=== PATIENT | female | born 1980 | race African-American/Black ===

== ENCOUNTER 2019-05-06 15:20 | Emergency (ER) | payer BC ==
--- NOTE | 2019-05-06 16:36 | RAD REPORT ---
EXAM DESCRIPTION: RAD - Chest Single View - 05/06/2019 4:18 pm CLINICAL HISTORY: COUGH Chest pain. COMPARISON: No comparisons FINDINGS: Portable technique limits examination quality. The lungs are grossly clear. The heart is normal in size. No displaced fractures. IMPRESSION: No acute intrathoracic process suspected.
--- NOTE | 2019-05-06 17:06 | EDPHYS ---
Physician Documentation [facility] Name: Maya Hendricks Age: 39 yrs Sex: Female : 1980 Arrival Date: 05/06/2019 Time: 15:26 Bed 14 Private MD: ED Physician Zhen Baptiste HPI: 05/05 16:00 This 39 yrs old Black Female presents to ER via Ambulatory with complaints of Sore jmm Throat, Cough. 16:00 The patient presents with sore throat. Onset: The symptoms/episode began/occurred jmm gradually, 1 week(s) ago. Modifying factors: The symptoms are alleviated by nothing, the symptoms are aggravated by nothing. Associated signs and symptoms: Pertinent positives: cough, earache, Pertinent negatives chills, fever. Historical: - Allergies: 15:31 seafood; ll1 - PMHx: 15:31 None; ll1 - PSHx: 15:31 None; ll1 - Immunization history:: Flu vaccine is not up to date. ROS: 16:00 Constitutional: Negative for fever, chills, and weight loss, Eyes: Negative for injury, jmm pain, redness, and discharge, Neck: Negative for injury, pain, and swelling, Cardiovascular: Negative for chest pain, palpitations, and edema, Respiratory: Negative for shortness of breath, cough, wheezing, and pleuritic chest pain. 16:00 Abdomen/GI: Negative for abdominal pain, nausea, vomiting, diarrhea, and constipation. 16:00 ENT: Positive for ear pain, sore throat. 16:00 Respiratory: Positive for cough. 16:00 All other systems are negative. Exam: 16:00 Constitutional: This is a well developed, well nourished patient who is awake, alert, jmm and in no acute distress. Head/Face: atraumatic. Eyes: EOMI, no conjunctival erythema appreciated 16:00 Neck: Trachea midline, Supple Chest/axilla: Normal chest wall appearance and motion. 16:00 Respiratory: Normal respirations, no respiratory distress appreciated Abdomen/GI: Non distended, soft Back: Normal ROM Skin: General appearance color normal 16:00 ENT: TM's: erythema, that is moderate, bilaterally, Posterior pharynx: erythema, that is moderate. 16:00 Cardiovascular: Rate: normal, Rhythm: regular. 16:00 Musculoskeletal/extremity: ROM: intact in all extremities. 16:00 Skin: Appearance: Color: normal in color. 16:00 Neuro: Orientation: is normal, Mentation: is normal, Memory: is normal. 16:00 Psych: Behavior/mood is pleasant, cooperative. Vital Signs: 15:29 BP 149 / 74; Pulse 87; Resp 17; Temp 98.7; Pulse Ox 99% ; Weight 82.55 kg; Height 5 ft. ll1 3 in. (160.02 cm); Pain 8/10; 15:29 Body Mass Index 32.24 (82.55 kg, 160.02 cm) ll1 MDM: 15:55 Patient medically screened. [facility] 17:03 Data reviewed: vital signs, nurses notes. Counseling: I had a detailed discussion with [facility] the patient and/or guardian regarding: the historical points, exam findings, and any diagnostic results supporting the discharge/admit diagnosis, lab results, radiology results, the need for outpatient follow up, to return to the emergency department if symptoms worsen or persist or if there are any questions or concerns that arise at home. ED course: Patient is alert and non toxic in appearance. No signs of resp distress. Does not qualify for COVID testing. Patient is advised to self quarantee for 14 days. Patient understood and agrees with the plan of care. . 05/05 16:00 Order name: Flu; Complete Time: 16:51 [facility] 05/05 16:00 Order name: Strep; Complete Time: 16:33 [facility] 05/05 16:00 Order name: Chest Single View XRAY; Complete Time: 16:57 [facility] 05/05 16:28 Order name: Throat Culture EDMS Administered Medications: No medications were administered Disposition: 18:35 Co-signature as Attending Physician, Zhen Baptiste MD Signature for administrative ps1 purposes. Did not see or evaluate patient. . Disposition: 05/06/19 17:05 Discharged to Home. Impression: Acute upper respiratory infection, unspecified, Acute serous otitis media, Acute pharyngitis. - Condition is Stable. - Discharge Instructions: Otitis Media, Adult, Pharyngitis, Upper Respiratory Infection, Adult. - Prescriptions for Augmentin 875- 125 mg Oral Tablet - take 1 tablet by ORAL route every 12 hours for 10 days; 20 tablet. Bromfed DM 2- 30-10 mg/5 mL Oral syrup - take 5 milliliter by ORAL route every 4 hours; 1 bottle. - Work release form, Medication Reconciliation Form, Thank You Letter, Antibiotic Education, Prescription Opioid Use form. - Follow up: Private Physician; When: 2 - 3 days; Reason: Recheck today's complaints, Continuance of care, Re-evaluation by your physician. - Notes: Please self quarantine for 14 days. If you developed shortness of breath please return to the ED for further evaluation. Signatures: Dispatcher [employer] EDMS Juan Whyte PA PA jmm Munoz, Edgar, RN RN em Zhen Baptiste MD MD ps1 Vic Damon RN RN ll1 Corrections: (The following items were deleted from the chart) 17:26 17:05 05/06/2019 17:05 Discharged to Home. Impression: Acute upper respiratory em infection, unspecified; Acute serous otitis media; Acute pharyngitis. Condition is Stable. Forms are Medication Reconciliation Form, Thank You Letter, Antibiotic Education, Prescription Opioid Use. Follow up: Private Physician; When: 2 - 3 days; Reason: Recheck today's complaints, Continuance of care, Re-evaluation by your physician. cande
--- NOTE | 2019-05-06 17:06 | ER ---
Nurse's Notes [facility] Name: Maya Hendricks Age: 39 yrs Sex: Female : 1980 Arrival Date: 05/06/2019 Time: 15:26 Bed 14 Private MD: Diagnosis: Acute upper respiratory infection, unspecified;Acute serous otitis media;Acute pharyngitis Presentation: 05/05 15:29 Chief complaint: Patient states: Sore throat, ear congestion and cough for 5 days. No ll1 known fever. Coronavirus screen: The patient has NOT traveled to a country currently being monitored by the CDC within the last 14 days. Proceed with normal triage procedures. Ebola Screen: Patient denies travel to an Ebola-affected area in the 21 days before illness onset. Initial Sepsis Screen: Does the patient meet any 2 criteria? No. Patient's initial sepsis screen is negative. Risk Assessment: Do you want to hurt yourself or someone else? Patient reports no desire to harm self or others. 15:29 Method Of Arrival: Ambulatory ll1 15:29 Acuity: SAHARA 4 ll1 Historical: - Allergies: 15:31 seafood; ll1 - PMHx: 15:31 None; ll1 - PSHx: 15:31 None; ll1 - Immunization history:: Flu vaccine is not up to date. Screenin:21 Abuse screen: Denies threats or abuse. Nutritional screening: No deficits noted. em Tuberculosis screening: No symptoms or risk factors identified. Fall Risk None identified. Assessment: 16:21 General: Appears in no apparent distress. uncomfortable, Behavior is calm, cooperative, em appropriate for age, Reports feeling ill for > 3 days, Denies fever. Pain: Complains of pain in throat Pain currently is 8 out of 10 on a pain scale. Neuro: Level of Consciousness is awake, alert, obeys commands, Oriented to person, place, time, situation, Appropriate for age. Cardiovascular: Capillary refill < 3 seconds Patient's skin is warm and dry. Respiratory: Reports cough that is Airway is patent Respiratory effort is even, unlabored, Respiratory pattern is regular, symmetrical, Breath sounds are clear bilaterally. Denies shortness of breath. EENT: Nares are clear Oral mucosa is moist. Throat is reddened has enlarged tonsils bilaterally. Derm: Skin is intact, is healthy with good turgor, Skin is pink, warm \T\ dry. Musculoskeletal: Capillary refill < 3 seconds, Range of motion: intact in all extremities. Vital Signs: 15:29 BP 149 / 74; Pulse 87; Resp 17; Temp 98.7; Pulse Ox 99% ; Weight 82.55 kg; Height 5 ft. ll1 3 in. (160.02 cm); Pain 8/10; 15:29 Body Mass Index 32.24 (82.55 kg, 160.02 cm) 1 ED Course: 15:26 Patient arrived in ED. mr 15:30 Triage completed. ll1 15:31 Arm band placed on Patient placed in an exam room. 1 15:49 [facility] 15:49 Zhen Baptiste MD is Attending Physician. [facility] 15:49 Delvin Gandhi, RN is Primary Nurse. em 16:08 Strep Sent. 3 16:08 Flu Sent. 3 16:19 Chest Single View XRAY In Process Unspecified. EDMS 16:21 Patient has correct armband on for positive identification. Bed in low position. Call em light in reach. Adult w/ patient. 17:25 No provider procedures requiring assistance completed. Patient did not have IV access em during this emergency room visit. Administered Medications: No medications were administered Outcome: 17:05 Discharge ordered by . [facility] 17:25 Discharged to home ambulatory, with family. em 17:25 Condition: good 17:25 Discharge instructions given to patient, family, Instructed on discharge instructions, follow up and referral plans. medication usage, Demonstrated understanding of instructions, follow-up care, medications, Prescriptions given X 2. 17:26 Patient left the ED. em Signatures: Dispatcher [employer] EDMS Jaun Whyte PA PA jmm Tee Mally mr Delvin Gandhi, RN RN Brunilda Cheng [employer] Vic Damon RN RN 1
[2019-05-06 17:37] VITALS: BP 149/74; TEMP 98.7; O2SAT 99
== END 2019-05-06 17:26 | disposition home or self-care (01) ==
LOC: ER 15:20
DX: J06.9 Acute upper respiratory infection, unspecified (principal); H65.03 Acute serous otitis media, bilateral; J02.9 Acute pharyngitis, unspecified
CPT/HCPCS: 71045; 87070; 87081; 87804; 99283

== ENCOUNTER 2021-11-13 05:52 | Inpatient (IN) | payer BC ==
[2021-11-05 11:42] LABS: Specific Gravity 1.025 (1.005-1.030); Urine Clarity Clear (Clear); Urine Color Yellow (Yellow)
[2021-11-05 11:43] LABS: Urine Bilirubin Negative (Negative); Urine Blood Negative (Negative); Urine Glucose Negative (Negative); Urine Protein Negative (Negative)
[2021-11-12 09:13] LABS: Absolute Lymphocytes (CBC) 1.9 K/uL (0.7-4.9); Hematocrit 36.6 % (36.0-45.0); Lymphocytes % 40.8 % (15.3-44.8); MCV 89.4 fL (80-100)
[2021-11-12 09:18] LABS: Specific Gravity 1.024 (1.005-1.030)
[2021-11-12 09:19] LABS: SARS-CoV-2 Antigen Rapid Res Negative (Negative)
[2021-11-13] MEDS ORDERED: CEFAZOLIN 2 GM IN 0.9% NACL 2 GM/100 ML BAG ONE (06:11)
[2021-11-13] MEDS ORDERED: Ringers Lactate 1,000 ML IV ONE (06:11)
[2021-11-13] MEDS ORDERED: BUPIVACAINE 0.75% (PF) 2 ML SP ONE (06:26)
[2021-11-13] MEDS ORDERED: MORPHINE SULFATE/PF 1 MG/ML (10 ML AMP) ONE (06:27)
[2021-11-13] MEDS ORDERED: EPINEPHRINE/PF 1 MG/ML AMP ONE (06:27)
[2021-11-13] MEDS ORDERED: CEFAZOLIN 2 GM in NA CHLORIDE 0.9% 100 ML IVPB SCH (06:30)
[2021-11-13] MEDS ORDERED: Ringers Lactate 1,000 ML IV SCH (06:30)
[2021-11-13] MEDS ORDERED: propofoL 200 MG/20 ML VIAL IV ONE ×5 (06:35→09:39)
[2021-11-13] MEDS ORDERED: LIDOCAINE 2% MPF 5 ML VIAL ONE (06:35)
[2021-11-13] MEDS ORDERED: dexAMETHasone 10 MG/ML VIAL ONE (06:35)
[2021-11-13] MEDS ORDERED: MIDAZOLAM HCL 2 MG/2 ML INJ ONE ×2 (06:36→07:08)
[2021-11-13] MEDS ORDERED: ONDANSETRON 4 MG/2 ML VIAL ONE (06:37)
[2021-11-13] MEDS ORDERED: ROCURONIUM 50 MG/5 ML VIAL IV ONE (06:47)
[2021-11-13] MEDS ORDERED: BUPIVACAINE 0.25% PF 30 ML VIAL ONE (06:56)
[2021-11-13] MEDS ORDERED: FENTANYL CITR 100 MCG/2 ML ONE (07:08)
[2021-11-13] MEDS: Ringers Lactate 1,000 ML IV ONE ×5 (07:57→10:00)
[2021-11-13] MEDS ORDERED: NA CHLORIDE 0.9% 100 ML ONE (08:02)
[2021-11-13] MEDS ORDERED: GLYCOPYRROLATE 0.2 MG/ML SYR ONE (08:07)
[2021-11-13] MEDS ORDERED: VASOPRESSIN 20 UNIT/ML VIAL ONE (08:07)
[2021-11-13] MEDS ORDERED: EPHEDRINE SULF 50 MG/ML VIAL ONE (08:10)
[2021-11-13] MEDS: VASOPRESSIN 20 UNIT/ML VIAL ONE ×2 (08:20→09:09)
[2021-11-13] MEDS ORDERED: ESMOLOL HCL 10 ML IV ONE (08:22)
[2021-11-13] MEDS ORDERED: VECURONIUM 10 MG/VIAL IV ONE (08:31)
[2021-11-13] MEDS ORDERED: LABETALOL 20 MG/4ML SYRINGE IV ONE (08:51)
[2021-11-13] MEDS ORDERED: KETOROLAC 30 MG/ML INJ ONE (09:36)
[2021-11-13] MEDS ORDERED: MEPERIDINE HCL 50 MG/ML IV PRN (10:30)
[2021-11-13] MEDS ORDERED: HYDROCODONE/APAP 5/325 MG TAB PO PRN (10:30)
--- NOTE | 2021-11-13 10:38 | P.BOP ---
Preoperative diagnosis: Fibroids, pelvic pain Postoperative diagnosis: same Primary procedure: ASHLEY BS, Left oophorectomy washings System Architect: Dheeraj Marino Estimated blood loss: 200 Specimen: uterus with both tubes attaches, and left ovary, cervix separate specimen Findings: 11lb uterus, normal tubes ovaries Anesthesia: General (and spinal with durapmorph) Complications: None Drain(s): Urinary catheter Fluids & blood products: UO 500 Transferred to: Recovery Room Condition: Good
--- OUTSIDE RECORDS SUMMARY | 2021-11-13 11:00 | XMS REPORT | Continuity of Care Document ---
:1980 Author Organization [facility] t Address [address] [place] [address] Care Team Providers Name Role Phone MANJINDER OQUENDO JR Primary Care Physician Unavailable TJ GARCIA Attending Clinician Unavailable Tj Garcia MD Attending Clinician Doctor Unassigned, [place] Attending Clinician Unavailable MARIA A FRY Attending Clinician Unavailable Maria A Fry MD Attending Clinician Nurse, Adc Pob Immunization Attending Clinician Unavailable Mo Courtney DO Attending Clinician Zhen Baptiste DO Attending Clinician Payers Payer Name Policy Type Policy Number Effective Date Expiration Date S [facility] - [id number] 2020 00:00:00 OUT OF STATE Problems Condition Condition Condition Status Onset Resolution Last Treating Co mments Source Name Details Category Date Date Treatment Clinician Date No known No known Disease Unive rs active active ity of problems problems [facility] Allergies, Adverse Reactions, Alerts Allergy Allergy Status Severity Reaction(s) Onset Inactive Treating Comm ents Source Name Type Date Date Clinician DIAZEPAM DRUG Active N/V Univers INGREDI - ity of 00:00: [place] [id number] Medical Branch Diazepam Propensi Active Nausea Univer s ty to and/or 03-10 ity of adverse Vomiting 00:00: [place] reaction 00 Medical s Branch NO KNOWN Drug Active [facility] ALLERGIE Class ity of S [place] [facility] Social History Social Habit Start Date Stop Date Quantity Comments Source Exposure to 2021-09-04 2021-09-14 Not sure [facility] SARS-CoV-2 (event) 00:00:00 09:02:00 Medica l Branch Sex Assigned At [birth year] [facility] y of [place] 00:00:00 00:00:00 Medical Branch Smoking Status Start Date Stop Date Source Tobacco smoking consumption [facility] Medical unknown Branch Medications Ordered Filled Start Stop Current Ordering Indication Dosage Frequency Signature Comments Components Source Medication Medication Date Date Medication? Clinician (SIG) Name Name methylPREDN Yes [id number] Take by Univers ISolone 4 - mouth ity of mg tablets 00:00: SEE-INSTRU [place] 00 CTIONS. Medical follow Branch package directions diazePAM Yes [id number] 5mg Take 1 Uni vers (VALIUM) 5 - tablet by ity of mg tablet 00:00: mouth 3 [place] 00 (three) Medical times Branch daily as needed for Muscle Spasms. ondansetron Yes [id number] 8mg Take 1 Univers 8 mg tablet 1-22 tablet by ity of 00:00: mouth [place] 00 every 8 Medical (eight) Branch hours as needed for Nausea and Vomiting (N/V). ondansetron Yes [id number] 8mg Take 1 Univers 8 mg tablet 1-22 tablet by ity of 00:00: mouth [place] 00 every 8 Medical (eight) Branch hours as needed for Nausea and Vomiting (N/V). ondansetron Yes [id number] 8mg Take 1 Univers 8 mg tablet 1-22 tablet by ity of 00:00: mouth [place] 00 every 8 Medical (eight) Branch hours as needed for Nausea and Vomiting (N/V). penicillin 2021- No [id number] 500mg Take 1 Univers v potassium 03-10 tablet by it y of 500 mg 00:00: 05:59 mouth 4 [place] tablet 00 :00 (four) Medical times Branch daily for 10 days. acetaminoph 2021- No [id number] 1{tbl} Take 1 U nivers en-codeine 1-22 01-30 tablet by ity of 300-30 mg 00:00: 05:59 mouth [place] tablet 00 :00 every 4 Medical (four) Branch hours as needed (pain) for up to 7 days. Indication s: acute pain naproxen 2020-02 Yes [id number] 550mg Take 1 U nivers sodium 0-18 tablet by ity of (ANAPROX 00:00: mouth 2 [place] DS) 550 mg 00 (two) Medical tablet times Branch daily with meals. naproxen 2020-02 Yes [id number] 550mg Take 1 U nivers sodium 0-18 tablet by ity of (ANAPROX 00:00: mouth 2 [place] DS) 550 mg 00 (two) Medical tablet times Branch daily with meals. naproxen 2020-02 Yes [id number] 550mg Take 1 U nivers sodium 0-18 tablet by ity of (ANAPROX 00:00: mouth 2 [place] DS) 550 mg 00 (two) Medical tablet times Branch daily with meals. naproxen 2020-02 Yes [id number] 550mg Take 1 U nivers sodium 0-18 tablet by ity of (ANAPROX 00:00: mouth 2 [place] DS) 550 mg 00 (two) Medical tablet times Branch daily with meals. naproxen 2020-02 Yes [id number] 550mg Take 1 U nivers sodium 0-18 tablet by ity of (ANAPROX 00:00: mouth 2 [place] DS) 550 mg 00 (two) Medical tablet times Branch daily with meals. methocarbam 2020-02- No [id number] 500mg Take 1 Univers oL 500 mg 0-18 10-24 tablet by ity of tablet 00:00: 04:59 mouth 3 [place] 00 :00 (three) Medical times Branch daily for 5 days. Immunizations Ordered Filled Immunization Date Status Comments [facility] Immunization Name Name SARS-COV-2 COVID-19 2021-01-22 Completed Unive rsity of PFIZER VACCINE 00:00:00 [facility] SARS-COV-2 COVID-19 2021-01-22 Completed Unive rsity of PFIZER VACCINE 00:00:00 [facility] SARS-COV-2 COVID-19 2021-01-22 Completed Unive rsity of PFIZER VACCINE 00:00:00 [place] Medi aura Branch SARS-COV-2 COVID-19 2021-01-22 Completed Unive rsity of PFIZER VACCINE 00:00:00 [facility] SARS-COV-2 COVID-19 2020-07-05 Completed Unive rsity of PFIZER VACCINE 00:00:00 [facility] SARS-COV-2 COVID-19 2020-07-05 Completed Unive rsity of PFIZER VACCINE 00:00:00 [facility] SARS-COV-2 COVID-19 2020-07-05 Completed Unive rsity of PFIZER VACCINE 00:00:00 [facility] SARS-COV-2 COVID-19 2020-07-05 Completed Unive rsity of PFIZER VACCINE 00:00:00 [facility] SARS-COV-2 COVID-19 2020-07-05 Completed Unive rsity of PFIZER VACCINE 00:00:00 [facility] SARS-COV-2 COVID-19 2020-06-15 Completed Unive rsity of PFIZER VACCINE 00:00:00 [facility] SARS-COV-2 COVID-19 2020-06-15 Completed Unive rsity of PFIZER VACCINE 00:00:00 [facility] SARS-COV-2 COVID-19 2020-06-15 Completed Unive rsity of PFIZER VACCINE 00:00:00 [facility] SARS-COV-2 COVID-19 2020-06-15 Completed Unive rsity of PFIZER VACCINE 00:00:00 [facility] SARS-COV-2 COVID-19 2020-06-15 Completed Unive rsity of PFIZER VACCINE 00:00:00 [facility] Vital Signs Vital Name Observation Time Observation Value Comments Source Systolic blood 2021-09-14 14:03:00 140 mm[Hg] Univer sity of pressure [facility] Diastolic blood 2021-09-14 14:03:00 83 mm[Hg] Unive rsity of pressure [facility] Heart rate 2021-09-14 14:03:00 91 /min [facility] Body temperature 2021-09-14 14:03:00 37.44 Rosalind Univ ersity of [facility] Respiratory rate 2021-09-14 14:03:00 18 /min Univ ersity of [facility] Body height 2021-09-14 14:03:00 157.5 cm Universi ty [facility] [place] [facility] Body weight 2021-09-14 14:03:00 81.647 kg Universi ty of [place] [facility] BMI 2021-09-14 14:03:00 32.92 kg/m2 Universi ty [facility] [place] [facility] Oxygen saturation in 2021-09-14 14:03:00 98 /min University of Arterial blood by [facility] [place] [facility] aura Pulse oximetry Branch Systolic blood 2021-03-10 13:54:00 132 mm[Hg] Univer sity of pressure [place] [facility] Diastolic blood 2021-03-10 13:54:00 94 mm[Hg] Unive rsity of pressure [place] [facility] Heart rate 2021-03-10 13:54:00 76 /min Universi ty [facility] [place] [facility] Body temperature 2021-03-10 13:54:00 37.11 Rosalind Univ ersity of [place] [facility] Respiratory rate 2021-03-10 13:54:00 18 /min Univ ersity of [place] [facility] Body weight 2021-03-10 13:54:00 81.194 kg Universi ty [facility] [place] [facility] Oxygen saturation in 2021-03-10 13:54:00 99 /min University of Arterial blood by [facility] [place] [facility] aura Pulse oximetry Branch Systolic blood 2020-12-04 22:17:00 146 mm[Hg] Univer sity of pressure [place] [facility] Diastolic blood 2020-12-04 22:17:00 88 mm[Hg] Unive rsity of pressure [place] [facility] Heart rate 2020-12-04 22:17:00 81 /min Universi ty [facility] [place] [facility] Body temperature 2020-12-04 22:17:00 36.94 Rosalind Univ ersity of [place] [facility] Respiratory rate 2020-12-04 22:17:00 19 /min Univ ersity of [place] [facility] Oxygen saturation in 2020-12-04 22:17:00 99 /min University of Arterial blood by [facility] Pulse oximetry Branch Procedures Procedure Date / Time Performed Performing Clinician Sour e CONSENT/REFUSAL FOR 2021-09-14 14:00:26 Doctor Unassigned, No Un [facility] [place] DIAGNOSIS AND Name Medical Branch TREATMENT CONSENT/REFUSAL FOR 2021-03-10 13:51:46 Doctor Unassigned, No [facility] [place] DIAGNOSIS AND Name Medical Branch TREATMENT SARS-COV-2 COVID-19 2021-01-22 21:38:09 Doctor Unassigned, No [facility] [place] VACCINE,0.3ML,IM Name Medical Branch (PFIZER) Encounters Start End Encounter Admission Attending Care Care Encounter Source Date/Time Date/Time Type Type Clinicians Facility Department ID 2021-09-14 2021-09-14 Emergency X GARCIA [facility] ERT [id number] Univers 09:02:00 09:32:00 TJ itroel [facility] 2021-09-14 2021-09-14 [facility] [id number] Univers 09:02:00 09:32:00 Tj VILLASENOR [id number] i ty of [place] [id number] [facility] [phone] [address] 2021-09-14 2021-09-14 Orders Doctor HEIDI [id number] Univers 00:00:00 00:00:00 Only Unassigned, WILLY [id number] ity of [place] [facility] [id number] Piyush [id number] [facility] 009 Branch 2021-03-10 2021-03-10 Emergency Farideh FRY [facility] ERT [id number] Univers 07:55:00 08:25:00 MARIA A gama [facility] 2021-03-10 2021-03-10 Emergency Lisandra [facility] [id number] Univers 07:55:00 08:25:00 Maria A VILLASENOR [id number] ity [facility] [id number] [facility] [id number] [place] [id number] [place] 2021-01-22 2021-01-22 Imm/Inj Nurse, Adc Pob Immunization [facility] [id number] Univers 15:27:34 15:28:05 Visit Mo Courtney [id number] .10 ity [facility] [id number] [facility] s PROFESSIO [id number] Pa dical [facility] [address] [facility] 2020-12-04 2020-12-04 Emergency Singer [facility] [id number] Univers 17:20:00 18:07:00 Zhen Villasenor [id number] i ty sultana [place] [id number] [facility] [id number] [facility] 084 Branch 2020-12-04 2020-12-04 Emergency X [facility] ERT [id number] Univers 17:02:00 17:02:00 ity of [facility] Results Test Description Test Time Test Comments Results Result Sour e Comments US PELVIC 2017-08-19 CLINICAL INDICATION: (TRANSVAGINAL 18:29:44 D25.9 Leiomyoma of ONLY) uterus, unspecifiedTECHNIQUE: Real-time and doppler transvaginal ultrasound evaluation of the pelvis was performed on the [employer].Comparison study: NoneFINDINGS:Both transabdominal and transvaginal scanning were performed.The uterus measures 15.0 x 8.8 x 8.0 cm.The uterus is bulky and multi fibroid. The largest fibroid is fundal subserosal measuring 12.1 x 8.6 x 13.1 cm. Smaller anterior and posterior submucosal fibroids are also discretely noted: 3.5 x 3.4 x 3.4 cm posterior and 3.6 x 2.5 x 2.8 cm anterior.Small Nabothian cysts are noted within the cervix.The visualized endometrium measures approximately 6.2 mm which is within the range of normal thickness for LMP dated 08/04/2017.The left ovary measures 2.7 x 2.0 x 1.6 cm for a volume of 4.52 ml. Follicles are noted.The right ovary is not visualized.No free fluid is noted.IMPRESSION:1. Bulky, multi fibroid uterus. The largest fibroid is fundal subserosal measuring 13.1 cm. Discrete submucosal fibroids are also noted measuring 3.6 cm (anterior) and 3.5 cm (posterior).2. Unremarkable appearing left ovary. The right ovary is not visualized.
[2021-11-13 11:06] VITALS: O2SAT 97
[2021-11-13] MEDS ORDERED: DIPHENHYDRAMINE 50 MG/ML VIAL IV ONE (11:40)
[2021-11-13] MEDS: PROMETHAZINE INJ 25 MG/ML AMP IV PRN ×2 (11:54→18:22)
[2021-11-13 12:12] VITALS: BMI 34.5
[2021-11-13] MEDS: Ringers Lactate 1,000 ML IV SCH (16:57)
[2021-11-13] MEDS: IBUPROFEN 600 MG TAB PO PRN (19:52)
[2021-11-14] MEDS: Ringers Lactate 1,000 ML IV SCH ×3 (00:10→16:22)
[2021-11-14 06:37] LABS: Absolute Lymphocytes (CBC) 1.8 K/uL (0.7-4.9); Hematocrit 28.9 % (36.0-45.0); Lymphocytes % 16.1 % (15.3-44.8); MCV 88.6 fL (80-100); MPV 8.2 fL (7.6-11.3); RBC Red Blood Cell Count 3.26 M/uL (3.86-4.86)
--- NOTE | 2021-11-14 09:31 | OP ---
Date of Procedure: 11/13/2021 Surgeon: Jocelynn Blount MD Office Rental Clerk: Dheeraj Marino MD Preoperative Diagnosis: Fibroids and pelvic pain. Postoperative Diagnosis: Fibroids and pelvic pain. Procedures Performed: Total abdominal hysterectomy, bilateral salpingectomy, left oophorectomy, and pelvic washings. Anesthesia: General endotracheal and spinal with Duramorph. Estimated Blood Loss: 200. Urine Output: 500. Drains: Montana catheter. Condition: Stable. Indications: The patient is a 41-year-old presented with growing size of the uterus, smoker. No his tory of any menorrhagia with significant level, but does have some fatigue and on followup, has noted that her periods do run heavy. Had slight anemia, which was treated. Did complain of abdominal distention. Endometrial sampling was negative for endometrial cancer or at ypia. The patient was advised to have a hysterectomy last year; however, she had postponed it, and finally this was the time that she wanted to do and she was scheduled for a total abdominal hysterectomy and bilateral salpingectomy. She had an ultrasound, which showed the largest fibroid to be very large, + 16 cm. An MRI of the pelvis was ordered. This showed that this was slightly larger than that and th ere were multiple other small leiomyomas. After making sure that there was no significant risk of leiomyosarcoma, I explained this to the patie nt. The patient was consented for the procedure, brought to the hospital. She also understood that the procedures as needed to be done for the feasibility for surgery and then she has a 1-week and 6-week postop visit. Description Of Procedure: After informed consent was verified, she was given 2 g of Ancef and taken back to OR, placed in a supine fashion on the table. General anesthesia was given. The patient was placed in dorsal lithotomy position and a Montana was left in place. This area was draped. Prep was w ith Betadine on the vulva, vagina, and abdominal prep was used done with ChloraPrep. SCDs were started. Time-out was done and procedure started. A lower midline incision was made with a 10 blade, making a right lateral cut going superiorly above the umbilicus and then connecting it another 1 inch. The incision started 2 cm above the level of th e pubic symphysis. After going through the subcutaneous tissues, securing hemostasis with the Bovie, fascia was incised and both layers were opened up. Trocars were placed on each side. The entire fascial incision was e xtended to the entire extent of the skin incision. Then, peritoneum was picked up between 2 clamps a nd cut sharply with scissors. The peritoneal entry was obtained. The peritoneum was opened up all t he way along with the fascia. The uterus was delivered outside the patient's body. The bowel was packed with RayTecs x3. Next, mo ving the base of the fibroid, it felt like this could be taken down, sutured units of 20 c c of normal saline mixed together was injected at the base of this large fibroid. However, on making an incision with the Bovie, there was significant amount of bleeding from the large blood vessels so decided to put a tourniquet around this fibroid. A azipaa-vm-xrfxh suture was placed in the area of bleeding and the plan was to just perform the hysterectomy without attaching the fibroid. There was no cut made into the fibroid. The superficial myometrium was only incised. After exposing the pedicle on the left side, the broad ligament was picked up with 2 Bárbara clamps and cut with the help of LigaSure, which was a hand-held LigaSure. The dissection was carried anteriorl y to the bladder flap. The fibroid at the center, superior aspect of the cervix was incised, and the dissection of the bladder was carried down carefully, protecting the bladder. Then posterior peritoneum was taken down. The utero-ovarian ligament was extremely vascular on the l eft side and I did not believe that it would be safe to leave the left ovary behind as there would be a lot of bleeding from just taking the broad ligament and the utero-ovarian ligament. The IP ligament was isolated. Peritoneum incised window between the ureter and the IP LigaSure were placed to cauterize and cut . Then, the posterior peritoneum was dissected all the way to the posterior aspect of the uterus. Then , the vessels were taken down and the broad ligament and the uterine vessels were skeletonized. After going to the opposite side, similar dissection was performed taking down the round ligament and also the broad ligament, connecting to the bladder flap superiorly going to connect down the utero-ovarian ligament. This was connected and the dissection the ovary had good vasc ular supply and so, . The tissue was then removed. Then, the broad ligament posterior asp ect was taken down to the level of the uterosacral and broad ligament was skeletonized using the Liga Sure and Bovie and the vessels were exposed here, there was difficulty visualizing the bladder. ____ pelvis was placed and retracted superiorly. Then went ahead and dissected the bladder down co mpletely. The vessels had to be taken down first to stop the bleeding, so went into the vessel on the right radha e with the help of the LigaSure the opposite side just only stitch was done without any cau burton used. Once this was done, the cervix was amputated with the uterus at the level of the once the bladder was dissected inferiorly and there was an identified approximately, then went on to take the vessels on the left side with Colcrys and straight clamps. The uterus was removed and the entire spe cimen was handed off to pathology. The cervix was then taken down with the help of Clarita clamps going down, 2 on each side d etached on the cervix and handed out for specimen. The only structure that was left behind was the r ight ovary and the right tube was taken out with the help of the LigaSure and the specimen . After thorough irrigation and suction were performed, there was a bleeder from the left as well as ri ght edge of the cuff. This was tied with the help of 3-0 Vicryl suture and there was excellent hemos tasis. The angle sutures with a Soraya clamp were placed and the cervix was amputated. Two figure-o f-eight sutures were placed at both angles and then 2 xddald-zf-dgavt sutures in the center for excel lent closure. Once this was done, there was thorough hemostasis secured and no evidence of any bleed ing. After irrigating and suctioning the peritoneal cavity, the peritoneum was pulled with the help of Bárbara and then continuous running 3-0 Vicryl suture was used to close the peritoneum. Then, fasci a closed with help of 0 PDS single suture starting on the top to the bottom and then the subcutaneous tissues with 3-0 Vicryl and dressed with 3-0 chromic and 3-0 Vicryl. Interrupted sutures were place d in the subdermal plane with 3-0 Vicryl and with 3-0 chromic deep stitches were placed. Then, the s taples on the incisions. Montana was left in place. Instrument, needle, and sponge counts were correc t at the end of the case. Her partner was notified of the findings. FATMATA/KARLY Voice ID: [id number] Report ID: [id number]
[2021-11-14] MEDS ORDERED: HYDROCODONE/APAP 5/325 MG TAB PO PRN (13:18)
[2021-11-14] MEDS ORDERED: SCOPOLAMINE HYDROBROMIDE PATCH TD ONE (13:30)
[2021-11-14] MEDS: IBUPROFEN 600 MG TAB PO PRN ×2 (13:39→20:09)
[2021-11-14] MEDS: PROMETHAZINE INJ 25 MG/ML AMP IV PRN (16:28)
--- NOTE | 2021-11-14 17:37 | P.PN ---
Subjective Date of Service: 11/14/21 Doing well today. Cath removed at 12pm, voided 400ml since that time. Up and walking some. Pain manageable with ibuprofen and norco. No BM yet. Nurse at bedside. Review of Systems 10-point ROS is otherwise unremarkable (pain in abdomen at incision site) Physical Examination - Vital Signs Temperature: 98.6 F Blood Pressure: 126/68 Pulse: 64 Respirations: 16 Pulse Ox (%): 100 - Physical Exam General: Alert, In no apparent distress, Oriented x3 HEENT: Atraumatic, Normocephalic Neck: Supple Respiratory: Normal air movement Cardiovascular: No edema, Normal pulses Gastrointestinal: Other (abdominal incision covered with packing, abdominal binder in place) Musculoskeletal: No swelling Integumentary: No rashes, No breakdown - Studies Laboratory Data (last 24 hrs) 11/14/21 06:13: WBC 11.30 H, Hgb 9.5 L, Hct 28.9 L, Plt Count 285 Medications List Reviewed: Yes Assessment And Plan - Current Problems (Diagnosis) (1) Leiomyoma Current Visit: Yes Status: Acute (2) Anemia Current Visit: Yes Status: Acute (3) Pain Current Visit: Yes Status: Acute - Plan 1. Leiomyoma: 1 day post op total abdominal hysterectomy, bilateral salpingectomy, left oophorectomy, and pelvic washings. Pathology reviewed and benign. Abdominal wound covered with packing, continue this and abdominal binder. 2. Anemia: Hgb 9.5 today, decreased from prior to surgery. Likely combination of surgical blood loss and hemodilution. No overt bleeding currently. Monitor. 3. Pain: Post-op pain. Ibuprofen q6h PRN and hydrocodone/acetaminophen 5/325mg q6h PRN. Phenergan to be given prior to norco as h/o nausea with this. Scopolomine patch in place. Tolerating well now.
[2021-11-15] MEDS: IBUPROFEN 600 MG TAB PO PRN ×2 (02:04→07:32)
[2021-11-15] MEDS: Ringers Lactate 1,000 ML IV SCH (02:05)
[2021-11-15 12:34] VITALS: BP 118/70; TEMP 97.2
== END 2021-11-15 12:37 | disposition home or self-care (01) | DRG 743 ==
LOC: OR 05:52 → 2ND-WC 10:56
PROVIDERS: ADMIT Obstetrics & Gynecology; ATTEND Obstetrics & Gynecology
PROC: 0UT70ZZ Resection of Bilateral Fallopian Tubes, Open Approach (ICD-10-PCS; 2021-11-13)
PROC: 0UB10ZZ Excision of Left Ovary, Open Approach (ICD-10-PCS; 2021-11-13)
PROC: 0UT90ZZ Resection of Uterus, Open Approach (ICD-10-PCS; principal; 2021-11-13 07:00)
DX: D25.9 Leiomyoma of uterus, unspecified (principal); D64.9 Anemia, unspecified; G89.18 Other acute postprocedural pain; F41.9 Anxiety disorder, unspecified; N92.0 Excessive and frequent menstruation with regular cycle; F17.210 Nicotine dependence, cigarettes, uncomplicated; Z20.822 Contact with and (suspected) exposure to COVID-19
CPT/HCPCS: 36415; 81003; 81025; 85025; 86850; 86900; 86901; 87811; 88108; 88305; 88307; 94010; J0171; J0690; J1100; J1200; J2001; J2250; J2405; J2550; J2704; J3010; J7120

== ENCOUNTER 2023-05-24 10:47 | Emergency (ER) | payer BC ==
--- OUTSIDE RECORDS SUMMARY | 2023-05-24 10:51 | XMS REPORT | Continuity of Care Document ---
Author Name Unknown Address [address] [facility] [place] [address] [facility] thconnect Address [address] [facility] [place] [address] Care Team Providers Care Principal Biostatistician Name Role Phone MANJINDER OQUENDO JR Primary Care Physician Ross curry [email or web address] Attending Clinician KIMBERLI Fu Attending Clinician BLADE Rodriguez Attending Clinician Unavailable Blade Stiles MD Attending Clinician [phone] Doctor Unassigned, [place] Attending Clinician U MARIA A Desouza Attending Clinician UnavailMaria A Bush MD Attending Clinician [phone] Nurse, Adc Pob Immunization Attending Clinician Unavailable Mo Courtney DO Attending Clinician [phone] Zhen Baptiste DO Attending Clinician [phone] [email or web address] Admitting Clinician Paul chatterjee Payers Payer Name Policy Type Policy Number Effective Date Expirati on Date Source RUTHANN JOHNSON [employer]: 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 94 ON STAND 9 [id number] 2022-02-17 00:00:00 BCBS [facility] [id number] 2020-10-18 00:00:00 Problems Condition Name Condition Details Condition Category Status Onset Date Resolution Date Last Treatment Date Treating Clinician Comments Source No known active problems No known active problems Disease [facility] Allergies, Adverse Reactions, Alerts Allergy Name Allergy Type Status Severity Reaction(s) Onset Date Inactive Date Treating Clinician Comments Source DIAZEPAM DRUG INGREDI Active N/V 03-10 00:00: 00 [facility] Diazepam Propensi ty to adverse reaction s Active Nausea and/or Vomiting 03-10 00:00: 00 [facility] NO KNOWN ALLERGIE S Drug Class Active [facility] Social History Social Habit Start Date Stop Date Quantity Comments Source Exposure to SARS-CoV-2 (event) 2021-09-04 00:00:00 2021-09-14 09:02:00 Not sure [facility] Sex Assigned At 1980 00:00:00 1980 00:00:00 [facility] Smoking Status Start Date Stop Date Source Tobacco smoking consumption unknown [facility] Medications Ordered Medication Name Filled Medication Name Start Date Stop Date Current Medication? Ordering Clinician Indication Dosage Frequency Signature (SIG) Comments Components Source methylPREDN ISolone 4 mg tablets 09-14 00:00: 00 Yes [id number] Take by mouth SEE-INSTRU CTIONS. follow package directions [facility] diazePAM (VALIUM) 5 mg tablet 09-14 00:00: 00 Yes [id number] 5mg Take 1 tablet by mouth 3 (three) times daily as needed for Muscle Spasms. [facility] ondansetron 8 mg tablet 03-10 00:00: 00 Yes [id number] 8mg Take 1 tablet by mouth every 8 (eight) hours as needed for Nausea and Vomiting (N/V). [facility] penicillin v potassium 500 mg tablet 03-10 00:00: 00 03-21 05:59 :00 No [id number] 500mg Take 1 tablet by mouth 4 (four) times daily for 10 days. [facility] acetaminoph en-codeine 300-30 mg tablet 03-10 00:00: 00 03-18 05:59 :00 No [id number] 1{tbl} Take 1 tablet by mouth every 4 (four) hours as needed (pain) for up to 7 days. Indication s: acute pain [facility] naproxen sodium (ANAPROX DS) 550 mg tablet 2020-02 0 00:00: 00 Yes [id number] 550mg Take 1 tablet by mouth 2 (two) times daily with meals. [facility] methocarbam oL 500 mg tablet 2020-02 0 00:00: 00 12-10 04:59 :00 No [id number] 500mg Take 1 tablet by mouth 3 (three) times daily for 5 days. [facility] Vital Signs Vital Name Observation Time Observation Value Comments S ource Systolic blood pressure 2021-09-14 14:03:00 140 mm[Hg] [facility] Diastolic blood pressure 2021-09-14 14:03:00 83 mm[Hg] [facility] Heart rate 2021-09-14 14:03:00 91 /min [facility] Body temperature 2021-09-14 14:03:00 37.44 Rosalind [facility] Respiratory rate 2021-09-14 14:03:00 18 /min [facility] Body height 2021-09-14 14:03:00 157.5 cm [facility] Body weight 2021-09-14 14:03:00 81.647 kg [facility] BMI 2021-09-14 14:03:00 32.92 kg/m2 [facility] Oxygen saturation in Arterial blood by Pulse oximetry 2021-09-14 14:03:00 98 /min [facility] Systolic blood pressure 2021-03-10 13:54:00 132 mm[Hg] [facility] Diastolic blood pressure 2021-03-10 13:54:00 94 mm[Hg] [facility] Heart rate 2021-03-10 13:54:00 76 /min [facility] Body temperature 2021-03-10 13:54:00 37.11 Rosalind [facility] Respiratory rate 2021-03-10 13:54:00 18 /min [facility] Body weight 2021-03-10 13:54:00 81.194 kg [facility] Oxygen saturation in Arterial blood by Pulse oximetry 2021-03-10 13:54:00 99 /min [facility] Systolic blood pressure 2020-12-04 22:17:00 146 mm[Hg] [facility] Diastolic blood pressure 2020-12-04 22:17:00 88 mm[Hg] [facility] Heart rate 2020-12-04 22:17:00 81 /min [facility] Body temperature 2020-12-04 22:17:00 36.94 Rosalind [facility] Respiratory rate 2020-12-04 22:17:00 19 /min [facility] Oxygen saturation in Arterial blood by Pulse oximetry 2020-12-04 22:17:00 99 /min [facility] Procedures Procedure Date / Time Performed Performing Clinicia n Source CONSENT/REFUSAL FOR DIAGNOSIS AND TREATMENT 2021-09-14 14:00:26 Doctor Unassigned, [place] [facility] CONSENT/REFUSAL FOR DIAGNOSIS AND TREATMENT 2021-03-10 13:51:46 Doctor Unassigned, [place] [facility] SARS-COV-2 COVID-19 VACCINE,0.3ML,IM (PFIZER) 2021-01-22 21:38:09 Doctor Unassigned, [place] [facility] Encounters Start Date/Time End Date/Time Encounter Type Admission Type Attending [facility] Facility Care Department Encounter ID Source 2022-12-17 00:00:00 2022-12-17 00:00:00 Outpatient [email or web address] giacomo_S [facility] [id number] [facility] 2022-11-18 16:00:00 2022-11-18 16:00:00 Outpatient KIMBERLI RUSS [id number] [facility] 2022-11-14 14:15:00 2022-11-14 14:15:00 Outpatient KIMBERLI RUSS [id number] Barbara Packer 2021-09-14 09:02:00 2021-09-14 09:32:00 Emergency X BLADE STILES [facility] [id number] [facility] 2021-09-14 09:02:00 2021-09-14 09:32:00 Emergency Blade Stiles [facility] [id number] [id number] [id number] [facility] 2021-09-14 00:00:00 2021-09-14 00:00:00 Orders Only Doctor Unassigned, [place] [facility] [id number] [id number] [id number] [facility] 2021-03-10 07:55:00 2021-03-10 08:25:00 Emergency X MARIA A MEJÍA [facility] E[facility] [id number] [facility] 2021-03-10 07:55:00 2021-03-10 08:25:00 Emergency Maria A Mejía [facility] [id number] [id number] [id number] [facility] 2021-01-22 15:27:34 2021-01-22 15:28:05 Imm/Inj Visit Nurse, Abisai Botello [facility] Mo Smith [facility] PROFESSIO [facility] [id number] [id number] [id number] [facility] 2020-12-04 17:20:00 2020-12-04 18:07:00 Emergency Zhen [facility] [id number] [id number] [id number] [facility] 2020-12-04 17:02:00 2020-12-04 17:02:00 Emergency X [facility] ERT [id number] [facility] Results Test Description Test Time Test Comments Results Resul t Comments Source US PELVIC (TRANSVAGINAL ONLY) 2017-08-19 18:29:44 CLINICAL INDICATION: D25.9 Leiomyoma of uterus, unspecifiedTECHNIQUE: Real-time and doppler transvaginal ultrasound evaluation of the pelvis was performed on the [employer] ([place]Comparison study: NoneFINDINGS:Both transabdominal and transvaginal scanning were [...]
--- NOTE | 2023-05-24 11:27 | RAD REPORT ---
EXAM DESCRIPTION: CT - Head Brain Wo Cont - 05/24/2023 11:21 am CLINICAL HISTORY: Dizziness;Headache COMPARISON: No comparisons TECHNIQUE: All CT scans are performed using dose optimization technique as appropriate and may inclu de automated exposure control or mA/KV adjustment according to patient size. FINDINGS: No intracranial hemorrhage, hydrocephalus or extra-axial fluid collection.No areas of brai n edema or evidence of midline shift. The paranasal sinuses and mastoids are clear. The calvarium is intact. IMPRESSION: No acute intracranial abnormality.
[2023-05-24 11:34] LABS: Specific Gravity 1.023 (1.005-1.030); Urine Bacteria None Seen /HPF (<20); Urine Bilirubin NEGATIVE (Negative); Urine Blood Negative (Negative); Urine Clarity Turbid (Clear); Urine Color Light-Yellow (Yellow); Urine Culture Reflex Order NOT NEEDED; Urine Glucose NEGATIVE (Negative); Urine Ketones NEGATIVE (Negative); Urine Microscopic Reflex YN ORDER UMIC; Urine Mucus Slight /HPF (None Seen); Urine Nitrite NEGATIVE (Negative); Urine Protein NEGATIVE (Negative); Urine RBC <5 /HPF (None Seen); Urine Urobilinogen Normal (Normal); Urine WBC <5 /HPF (<5)
[2023-05-24 11:55] LABS: Absolute Eosinophils 0.1 K/uL (0-0.5); Absolute Monocytes 0.3 K/uL (0.1-1.3); Absolute Neutrophil 2.4 K/uL (1.8-8.0); Basophils % 0.7 % (0-1.3); Eosinophils % 2.2 % (0-4.4); Hematocrit 38.2 % (36.0-45.0); Hemoglobin 12.5 g/dL (12.0-15.0); Lymphocytes % 40.5 % (15.3-44.8); MCH 29.1 pg (27.0-35.0); MCHC 32.8 g/dL (32.0-36.0); MCV 88.8 fL (80-100); MPV 7.3 fL (7.6-11.3); Monocytes % 6.5 % (3.3-12.3); Neutrophils % 50.1 % (41.7-73.7); Nucleated Red Blood Cells % 0.1 % (0-0); Platelets 400 thou/uL (152-406); RBC Red Blood Cell Count 4.31 M/uL (3.86-4.86); Red Cell Distribution Width 14.4 % (12.1-15.2)
[2023-05-24 12:01] LABS: PT Prothrombin Time 12.1 SECONDS (9.5-12.5); PTT, Activated Partial Thromb 35.9 SECONDS (24.3-36.9); Protime INR 1.1
[2023-05-24 12:15] LABS: ALT/SGPT 17 U/L (13-56); AST/SGOT 12 U/L (15-37); Albumin 3.5 g/dL (3.4-5.0); Albumin/Globulin Ratio 0.9 (1.1-1.8); Alkaline Phosphatase 63 U/L (45-117); Anion Gap 8.7 mEq/L (5.0-15.0); BUN Blood Urea Nitrogen 8 mg/dL (7-18); Bicarbonate 25 mEq/L (21-32); Bilirubin Direct 0.1 mg/dL (0-0.2); Bilirubin Indirect, Calculated 0.4 mg/dL (0.2-0.8); Bilirubin Total 0.5 mg/dL (0.2-1.0); Globulin 3.7 g/dL (2.3-3.5); Glomerular Filtration Rate 90 ml/min (=/>90); Glucose Level 102 mg/dL (74-106); Magnesium 1.9 mg/dL (1.6-2.4); Potassium 3.7 mEq/L (3.5-5.1); Protein, Total 7.2 g/dL (6.4-8.2); Sodium Level 138 mEq/L (136-145)
[2023-05-24 12:25] LABS: Troponin High Sensitivity < 3.0 pg/mL (<58.9)
--- NOTE | 2023-05-24 12:42 | EDPHYS ---
Physician Documentation [facility] Name: Maya Hendricks Age: 43 yrs Sex: Female : 1980 Arrival Date: 05/24/2023 Time: 10:47 Bed 18 Private MD: John Rapp ED Physician Rio Nagel HPI: 05/23 13:35 This 43 yrs old Black Female presents to ER via Ambulatory with complaints of kb Dizziness, Headache. 13:35 Pt is a 43 year old female who presents for headache and dizziness that started 4 days kb ago. Denies n/v/d/f, cough, congestion. States the symptoms have been constant, but have been less severe since onset 4 days ago. . Historical: - Allergies: 11:05 SEAFOOD; nj1 11:05 Codeine; nj1 - PMHx: 11:05 None; nj1 - Immunization history:: Client reports receiving the 2nd dose of the Covid vaccine. - Infectious Disease History:: Denies. - Social history:: Smoking status: Reported history of juuling and/or vaping. ROS: 11:55 Constitutional: As per HPI kb Exam: 11:55 Constitutional: This is a well developed, well nourished patient who is awake, alert, kb and in no acute distress. Head/Face: Normocephalic, atraumatic. ENT: Moist Mucous membranes Cardiovascular: Regular rate Respiratory: Respirations even and unlabored. No increased work of breathing. Talking in full sentences Abdomen/GI: Soft, non-tender. No distention Skin: Warm, dry with normal turgor. Normal color. MS/ Extremity: Pulses equal, no cyanosis. Neurovascular intact. Full, normal range of motion. Neuro: Awake and alert, GCS 15, oriented to person, place, time, and situation. Moves all extremities. Normal gait. 11:55 ECG was reviewed by the Attending Physician. Vital Signs: 10:58 BP 133 / 83; Pulse 69; Resp 17; Temp 97.1(TE); Pulse Ox 99% on R/A; Weight 90.72 kg; nj1 Height 5 ft. 2 in. ; Pain 7/10; 11:32 BP 108 / 61; Pulse 73; Resp 16; Pulse Ox 100% on R/A; ab3 12:00 BP 107 / 64; Pulse 56; Resp 16; Pulse Ox 98% on R/A; ab3 12:30 BP 109 / 64; Pulse 56; Resp 16; Pulse Ox 98% on R/A; ab3 13:05 Temp 97.4; ph 10:58 Body Mass Index 36.58 (90.72 kg, 157.48 cm) nj1 10:58 Pain Scale: Adult nj1 Wesly Coma Score: 11:32 Eye Response: spontaneous(4). Motor Response: obeys commands(6). Verbal Response: ab3 oriented(5). Total: 15. MDM: 11:04 Patient medically screened. kb 13:35 Differential diagnosis: cardiac arrhythmia, generalized weakness, hypovolemia, kb idiopathic dizziness, migraine, tension headache. Data reviewed: vital signs, nurses notes. Counseling: I had a detailed discussion with the patient and/or guardian regarding the historical points, exam findings, and any diagnostic results supporting the discharge/admit diagnosis, lab results, radiology results, the need for outpatient follow up, a family practitioner, to return to the emergency department if symptoms worsen or persist or if there are any questions or concerns that arise at home. 05/23 11:10 Order name: Basic Metabolic Panel; Complete Time: 12:28 kb 05/23 11:10 Order name: CBC with Diff; Complete Time: 11:56 kb 05/23 11:10 Order name: Hepatic Function; Complete Time: 12:28 kb 05/23 11:10 Order name: Magnesium; Complete Time: 12:28 kb 05/23 11:10 Order name: Protime (+inr); Complete Time: 12:04 kb 05/23 11:10 Order name: Ptt, Activated; Complete Time: 12:04 kb 05/23 11:10 Order name: Troponin High Sensitivity; Complete Time: 12:28 kb 05/23 11:10 Order name: Urinalysis w/ reflexes; Complete Time: 11:34 kb 05/23 11:10 Order name: CT Head Brain wo Cont; Complete Time: 11:32 kb 05/23 11:10 Order name: EKG; Complete Time: 11:10 kb 05/23 11:10 Order name: Cardiac monitoring; Complete Time: 11:38 kb 05/23 11:10 Order name: EKG - Nurse/Tech; Complete Time: 11:38 kb 05/23 11:10 Order name: IV Saline Lock; Complete Time: 11:48 kb 05/23 11:10 Order name: Labs collected and sent; Complete Time: 11:47 kb 05/23 11:10 Order name: NPO; Complete Time: 11:47 kb 05/23 11:10 Order name: O2 Per Protocol; Complete Time: 11:48 kb 05/23 11:10 Order name: O2 Sat Monitoring; Complete Time: 11:48 kb EC:55 Rate is 57 beats/min. Rhythm is regular. QRS [place] is Normal. VA interval is normal at kb 182 msec. QRS interval is normal at 62 msec. QT interval is normal at 406 msec. Administered Medications: No medications were administered Disposition Summary: 05/24/23 12:41 Discharge Ordered Notes: Location: Home kb Condition: Stable kb Diagnosis - Headache kb Followup: kb - With: Emergency Department - When: As needed - Reason: Worsening of condition Followup: kb - With: Private Physician - When: 2 - 3 days - Reason: Recheck today's complaints, Continuance of care, Re-evaluation by your physician Discharge Instructions: - Discharge Summary Sheet kb - General Headache Without Cause, Yizv-iz-Ldun kb Forms: - Medication Reconciliation Form kb - Thank You Letter kb - Antibiotic Education kb - Prescription Opioid Use kb - Patient Portal Instructions kb - Leadership Thank You Letter kb Signatures: Dispatcher [employer] Camila Thompson, GHOST WRITER-C GHOST WRITER-Mickie Kaye, RN RN nj1 Corrections: (The following items were deleted from the chart) 11:10 11:10 BASIC METABOLIC PANEL+C.LAB.BRZ ordered. EDMS EDMS 11:10 11:10 CBC+H.LAB.BRZ ordered. EDMS EDMS 11:10 11:10 HEPATIC FUNCTION+C.LAB.BRZ ordered. EDMS EDMS 11:10 11:10 MAGNESIUM+C.LAB.BRZ ordered. EDMS EDMS 11:10 11:10 PROTIME (+INR)+COAG.LAB.BRZ ordered. EDMS EDMS 11:10 11:10 PTT, ACTIVATED+COAG.LAB.BRZ ordered. EDMS EDMS 11:10 11:10 Troponin High Sensitivity+C.LAB.BRZ ordered. EDMS EDMS 11:10 11:10 Urinalysis+U.LAB.BRZ ordered. EDMS EDMS
--- NOTE | 2023-05-24 12:42 | ER ---
Nurse's Notes [facility] Name: Maya Hendricks Age: 43 yrs Sex: Female : 1980 Arrival Date: 05/24/2023 Time: 10:47 Bed 18 Private MD: John Rapp Diagnosis: Headache Presentation: 05/23 10:58 Chief complaint: Patient states: Headache since Friday, has improved some but still nj1 hurting "pressure" along with dizziness. Head pressure improves "when closing eyes". Has not taken anything OTC. 10:58 Coronavirus screen: Vaccine status: Patient reports receiving the 2nd dose of the covid nj1 vaccine. Ebola Screen: Patient denies travel to an Ebola-affected area in the 21 days before illness onset. Initial Sepsis Screen: Does the patient meet any 2 criteria? No. Patient's initial sepsis screen is negative. Does the patient have a suspected source of infection? No. Patient's initial sepsis screen is negative. Risk Assessment: Do you want to hurt yourself or someone else? Patient reports no desire to harm self or others. Onset of symptoms was May 21, 2023. 10:58 Method Of Arrival: Ambulatory [facility] 10:58 Acuity: SAHARA 3 nj1 Triage Assessment: 13:06 Pain: Also complains of. ph Historical: - Allergies: 11:05 SEAFOOD; nj1 11:05 Codeine; nj1 - PMHx: 11:05 None; nj1 - Immunization history:: Client reports receiving the 2nd dose of the Covid vaccine. - Infectious Disease History:: Denies. - Social history:: Smoking status: Reported history of juuling and/or vaping. Screenin:08 [facility] ED Fall Risk Assessment (Adult) History of falling in the last 3 months, ph including since admission No falls in past 3 months (0 pts) Confusion or Disorientation No (0 pts) Intoxicated or Sedated No (0 pts) Impaired Gait No (0 pts) Mobility Assist Device Used No (0 pt) Altered Elimination No (0 pt) Score/Fall Risk Level 0 - 2 = Low Risk Oriented to surroundings, Maintained a safe environment, Assessed \\T\\ reinforced patient's understanding of fall precautions, Hourly rounding (assess needs \\T\\ fall precautionary measures) done. Abuse screen: Denies threats or abuse. Denies injuries from another. Nutritional screening: No deficits noted. Tuberculosis screening: No symptoms or risk factors identified. Assessment: 11:13 General: Appears in no apparent distress. well developed. Pain: Complains of pain in ab3 head Pain began 2-3 days ago. Is intermittent, Noted to be. Neuro: Reports dizziness, headache since friday. Cardiovascular: No deficits noted. Respiratory: Reports shortness of breath. Vital Signs: 10:58 BP 133 / 83; Pulse 69; Resp 17; Temp 97.1(TE); Pulse Ox 99% on R/A; Weight 90.72 kg; nj1 Height 5 ft. 2 in. ; Pain 7/10; 11:32 BP 108 / 61; Pulse 73; Resp 16; Pulse Ox 100% on R/A; ab3 12:00 BP 107 / 64; Pulse 56; Resp 16; Pulse Ox 98% on R/A; ab3 12:30 BP 109 / 64; Pulse 56; Resp 16; Pulse Ox 98% on R/A; ab3 13:05 Temp 97.4; ph 10:58 Body Mass Index 36.58 (90.72 kg, 157.48 cm) nj1 10:58 Pain Scale: Adult nj1 [place] Coma Score: 11:32 Eye Response: spontaneous(4). Motor Response: obeys commands(6). Verbal Response: ab3 oriented(5). Total: 15. ED Course: 10:50 Patient arrived in ED. rg4 10:50 John Rapp MD is Private Physician. rg4 11:04 [facility] kb 11:04 Rio Nagel MD is Attending Physician. kb 11:05 Jolene Carballo, DOMENIC is Primary Nurse. ph 11:05 Triage completed. nj1 11:06 Arm band placed on. nj1 11:12 Placed in gown. Bed in low position. Call light in reach. Side rails up X 1. Adult w/ ab3 patient. Provided Education on: Orientation to Room/ER process . 11:15 Urine collected: clean catch specimen. ab3 11:23 CT Head Brain wo Cont In Process Unspecified. EDMS 11:32 No apparent distress. ab3 11:32 Client placed on continuous cardiac and pulse oximetry monitoring. NIBP monitoring ab3 applied. telemetry monitor on. Pulse ox on. NIBP on. 11:38 EKG done, by ED staff. [id number] 11:45 Initial lab(s) drawn, by ED staff, sent to lab. ab3 11:45 Inserted saline lock: 20 gauge in right antecubital area, using aseptic technique. ph Blood collected. 11:48 Basic Metabolic Panel Sent. ab3 11:48 CBC with Diff Sent. ab3 11:48 Hepatic Function Sent. ab3 11:48 Magnesium Sent. ab3 11:48 Protime (+inr) Sent. ab3 11:48 Ptt, Activated Sent. ab3 11:48 Troponin High Sensitivity Sent. ab3 13:05 No provider procedures requiring assistance completed. IV discontinued, intact, ph bleeding controlled, No redness/swelling at site. Pressure dressing applied. Administered Medications: No medications were administered Medication: 11:09 VIS not applicable for this client. ph Outcome: 12:41 Discharge ordered by . kb 13:05 Discharged to home ambulatory, ph 13:05 Condition: good 13:05 Discharge instructions given to patient, Instructed on discharge instructions, follow up and referral plans. Demonstrated understanding of instructions, follow-up care, 13:06 Patient left the ED. ph Signatures: Dispatcher [employer] EDMS Camila Smith, BUSINESS EXECUTIVE-C BUSINESS EXECUTIVE-Jolene Marie, RN RN Lina Slater rg4 Mickie Kaye, DOMENIC RN nj1 Sravan Ambrosio jg11 Nandini Hayden, RN RN ab3
[2023-05-24 16:02] VITALS: BP 109/64; TEMP 97.4; O2SAT 98
--- NOTE | 2023-05-26 12:47 | EKG ---
Test Date: 2023-05-24 Test Time: 11:36:01 Side Trimmer: AYLIN MEASUREMENT RESULTS: Intervals: Rate: 57 PA: 182 QRSD: 62 QT: 418 QTc: 406 [place]: P: 63 PA: 182 QRS: 65 T: 47 INTERPRETIVE STATEMENTS: Sinus bradycardia Low voltage QRS Borderline ECG No previous ECG available for comparison Electronically Signed On 05-26-23 12:42:08 CDT by Chris Quinones
== END 2023-05-24 13:06 | disposition home or self-care (01) ==
LOC: ER 10:47
DX: R51.9 Headache, unspecified (principal); R42 Dizziness and giddiness; Z88.5 Allergy status to narcotic agent; Z91.013 Allergy to seafood
CPT/HCPCS: 36415; 70450; 80048; 80076; 81001; 83735; 84484; 85025; 85610; 85730; 93005; 99284